=== PATIENT | female | born 1980 | race Caucasian/White ===

== ENCOUNTER 2025-05-27 07:05 | Observation (INO) ==
[2025-05-27] MEDS: MORPHINE SULFATE INJ 4 MG IVP ONE (07:41)
[2025-05-27] MEDS: ZOFRAN INJ 4 MG VIAL IVP ONE (07:41)
[2025-05-27 07:55] LABS: MEAN PLATELET VOLUME 7.5 fL (7.4-11.0); RED CELL DISTRIBUTION WIDTH 19.2 % (11.6-16.5)
[2025-05-27 08:03] LABS: COR NA(FOR HYPERGLY) 141 mmol/L (136-145); CREATININE 0.73 mg/dL (0.55-1.02); eGFR NON BLACK RACES > 60 (>60)
--- NOTE | 2025-05-27 08:55 | CT ---
EXAM: CT abdomen pelvis without contrast HISTORY: Severe abdominal pain TECHNIQUE: Axial noncontrast images with coronal and sagittal reformats. Dose reduction procedures were used with mA/kv adjusted for body size. This examination is limited due to the lack of intravenous and oral contrast. The examination was performed unenhanced at the SOLE direction of the ordering caregiver. Radiology was afforded no input into the method of performance of this examination. COMPARISON: 01/01/2025 FINDINGS: r within normal limits. Patient is status post cholecystectomy. Postsurgical changes are present in the area of the distal esophagus/gastroesophageal junction/proximal stomach. Historical correlation recommended. Kidneys are unobstructed and without stones. No ureteral calculi identified. Appendix not identified with absolute certainty. No secondary signs of appendicitis present. Abdominal aorta is of normal caliber. No enlarged intraperitoneal or retroperitoneal lymphadenopathy identified. Examination of the small bowel is limited by a paucity of intraperitoneal and retroperitoneal fat. However, there are multiple dilated fluid-filled jejunal and proximal ileal loops in the left abdomen. There is transition to more collapsed normal caliber mid and distal and terminal ileal loops in the lower midabdomen. Findings are suspicious for a partial small bowel obstruction. The etiology is not obvious. Surgical evaluation is recommended. There are no findings suggestive of colitis or diverticulitis. There is a large amount of stool throughout the colon suggestive of possible constipation. Examination of the pelvis demonstrated no evidence for pelvic masses, pelvic fluid, or pelvic lymphadenopathy. No definite bladder abnormality identified however evaluation of the bladder was limited due to the fact that it was nearly empty. There is an IUD present within the uterus. No lytic or blastic skeletal lesions of significance are identified. IMPRESSION: Examination is limited due to the lack of intravenous and oral contrast and a paucity of intra-and retroperitoneal fat in this patient. Interval development since the prior examination of multiple dilated loops of jejunum and proximal ileum in the left abdomen. There is a transition to more normal sized small bowel in the lower midabdomen suggestive of a partial small bowel obstruction the etiology of which is not obvious. Surgical evaluation is recommended. THIS IS AN ELECTRONICALLY VERIFIED FINAL REPORT 05/27/2025 8:52 AM - Electronically signed by Andrae Marquez MD
--- NOTE | 2025-05-27 09:04 | ED.ABDFE ---
HPI Time Seen Time Seen by Provider: 05/27/25 08:04 PCP Primary Care Physician: Gely HPI Comment HPI Comment: Patient with complaint of periumbilical abdominal pain since 2:30 in the morning. Patient states it is intermittent. She is unable to get relief despite multiple attempts at self treatment. Patient states she has been nauseated prior to arrival and tried to have orange juice and regurgitated it. At this time she is not nauseated after getting Zofran and the pain is controlled with morphine. She did have Phenergan earlier as well. Patient states she had a bowel movement yesterday. She does tend to run constipated. 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 Patient states she also had a bowel obstruction last year. Complaint Chief Complaint:: Patient complains of severe abdominal pain around "silver- umbilical" area since 0230 hrs. She states it is intermittent with occasional 4- 5 minutes of it easing off. She took warm showers, Phenergan 50 mg IM, Linzess without pain relief. She states she was intitially not nauseated, but developed nausea [employer]ER. 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 Other Family History History of Family Medical Conditions: Yes Family Medical History: Diabetes Mellitus and Hypertension Social History Does patient currently use any type of tobacco product: No Have you used tobacco products in the last 12 months: No Type of Tobacco Use: None Does any household member use tobacco: No Alcohol Use: Occasionally Do you use any recreational Drugs:: No Lives With: Spouse Lives Where: Home Travel Risk Coronavirus risk:travel/contact w/high risk person: No Has patient experienced Coronavirus symptoms: No Infectious screening In the last 2 months have you had wt loss of >10#?: NO Have you had fever, night sweats or hemotysis?: No Have you traveled outside the country in the last 6 months?: No Isolation: Standard ROS Review of Systems Constitutional: No Symptoms Reported Eyes: No Symptoms Reported ENTM: No Symptoms Reported Respiratoy: No Symptoms Reported Cardiovascular: No Symptoms Reported Gastrointestinal/Abdominal: See HPI Genitourinary: No Symptoms Reported Neurological: No Symptoms Reported Musculoskeletal: No Symptoms Reported Integumentary: No Symptoms Reported Hematologic/Lymphatic: No Symptoms Reported Endocrine: No Symptoms Reported Psychiatric: No Symptoms Reported All Other Systems: Reviewed and Negative PE Vital Signs Vitals: Vital Signs Temperature 98.6 F Pulse Rate 64 Respiratory Rate 18 Respiratory Rate 18 Blood Pressure 129/71 O2 Sat by Pulse Oximetry 100 General Limitations: No Limitations and Language Barrier General Appearance: Alert and In No Apparent Distress Head Head Exam: Normal Inspection Eyes Eye exam: Normal Appearance ENT ENT Exam: Normal Exam Neck Neck Exam: Normal Inspection Chest Chest Inspection: Normal Inspection Respiratory Respiratory Exam: Normal Lung Sounds Bilat Cardiovascular Cardiovascular Exam: Regular Rate and Normal Rhythm Abdominal Exam Abdominal Exam: Soft, Distention, Tenderness and Dimnished Bowel Sounds; negative Guarding, Rebound or Rigidity Rectal Rectal Exam: Deferred Back Back Exam: Normal Inspection Extremeties Extremities Exam: Normal Inspection Neurologic Neurological Exam: Alert and Oriented X3 Psychiatric Psychiatric Exam: Normal Affect and Normal Mood Skin Skin Exam: Warm, Dry and Intact COURSE Treatment Treatment: Patient does have small bowel obstruction on CT. Discussed results of workup with patient and family and they are agreeable to admission. 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 We discussed NG tube with patient and family but patient opted to wait and see since she is not nauseated or vomiting at this time. Consultation Called: 09:36 Consultation Comments: Discussed case with Dr. Guerra and he is agreeable to admission. Discussed case with surgeon, Dr. Burnette and he states he will see patient in the next couple of hours. ROR Labs Reviewed 05/27/25 07:44 05/27/25 07:44 Laboratory: WBC 5.5 X10^3/uL (3.6-10.0) 05/27/25 07:44 RBC 5.50 X10^6/uL (3.5-5.4) H 05/27/25 07:44 Hgb 13.4 g/dL (12.0-16.0) 05/27/25 07:44 Hct 41.8 % (36.0-47.0) 05/27/25 07:44 MCV 76.0 fL (80.0-100.0) L 05/27/25 07:44 MCH 24.4 pg (27.0-34.0) L 05/27/25 07:44 MCHC 32.1 g/dL (33.0-35.0) L 05/27/25 07:44 RDW 19.2 % (11.6-16.5) H 05/27/25 07:44 Plt Count 248 X10^3/uL (150.0-450.0) 05/27/25 07:44 MPV 7.5 fL (7.4-11.0) 05/27/25 07:44 Neut % (Auto) 85.9 % (42.0-75.0) H 05/27/25 07:44 Lymph % (Auto) 9.9 % (21.0-51.0) L 05/27/25 07:44 [place] % (Auto) 3.5 % (0.0-13.0) 05/27/25 07:44 Eos % (Auto) 0.3 % (0.9-2.9) L 05/27/25 07:44 Baso % (Auto) 0.4 % (0.2-1.0) 05/27/25 07:44 Neut # (Auto) 4.7 x10^3/uL (2.2-4.8) 05/27/25 07:44 Lymph # (Auto) 0.5 X10^3/uL (1.3-2.9) L 05/27/25 07:44 [place] # (Auto) 0.2 x10^3/uL (0.3-0.8) L 05/27/25 07:44 Eos # (Auto) 0.0 x10^3/uL (0.0-0.2) 05/27/25 07:44 Baso # (Auto) 0.0 X10^3/uL (0.0-0.1) 05/27/25 07:44 Absolute Nucleated RBC 0.0 /100WBC 05/27/25 07:44 Sodium 140 mmol/L (136-145) 05/27/25 07:44 Corrected Sodium 141 mmol/L (136-145) 05/27/25 07:44 Potassium 4.0 mmol/L (3.5-5.1) 05/27/25 07:44 Chloride 103 mmol/L (98-107) 05/27/25 07:44 Carbon Dioxide 25.8 mmol/L (21-32) 05/27/25 07:44 BUN 15 mg/dL (7-18) 05/27/25 07:44 Creatinine 0.73 mg/dL (0.55-1.02) 05/27/25 07:44 Est GFR (MDRD) Af Amer > 60 (>60) 05/27/25 07:44 Est GFR (MDRD) Non-Af > 60 (>60) 05/27/25 07:44 Glucose 128 mg/dL (65-99) H 05/27/25 07:44 Calcium 9.2 mg/dL (8.5-10.1) 05/27/25 07:44 Corrected Calcium TNP 05/27/25 07:44 Total Bilirubin 0.90 mg/dL (0.2-1.0) 05/27/25 07:44 AST 39 Units/L (15-37) H 05/27/25 07:44 ALT 57 Units/L (12-78) 05/27/25 07:44 Alkaline Phosphatase 57 Units/L (46-116) 05/27/25 07:44 Total Protein 9.0 g/dL (6.4-8.2) H 05/27/25 07:44 Albumin 4.9 g/dL (3.4-5.0) 05/27/25 07:44 Globulin 4.1 g/dL (2.5-4.5) 05/27/25 07:44 Albumin/Globulin Ratio 1.2 Ratio (1.1-2.1) 05/27/25 07:44 Amylase 55 Units/L (25-115) 05/27/25 07:44 Lipase 46 Units/L (16-77) 05/27/25 07:44 Opioid Opioid Risk Tool Age (Tommie box if 16-45): Yes History of Preadolescent Sexual Abuse: No Total: 1 Total Score Risk Category: Low Risk Copyright: Jaime MAGANA predicting aberrant behaviors Discharge Plan Diagnosis Discharge Problem: Small bowel obstruction Discharge Plan Patient Disposition: 09 ADMITTED INPATIENT Condition: Stable Prescriptions: No Action Wegovy 1.7 mg/0.75 mL pen injector 1.7 mg SUBCUT QWEEK Health Concerns: Post Hospitalization: new medications and changes needed to prevent readmission or further decline. Pt educated and given instructions on all concerns. Plan of Treatment: Continue with present treatment and follow up plan. Pt is to keep follow up appointment as instructed and take medications as ordered. Orders to Discharge Patient Discharge Orders: Transfer (Routine); Ordered 05/27/25 Ordered By: Parveen Gardiner Follow ups/Referrals Follow ups/Referrals: Fran Hong MD [Primary Care Provider, Family Practice] - 3 days Instructions Stand Alone Forms: Find Help Web Site, Post Hospital Follow Up Care Print Language: SPANISH
[2025-05-27] MEDS: MORPHINE SULFATE INJ 2 MG INJ IVP ONE (10:21)
--- NOTE | 2025-05-27 11:02 | DR.H&P ---
H&P History & Physical for Day of: H&P Date: 05/27/25 Chief Complaint Chief Complaint: abdominal pain nausea History of Present Illness History of Present Illness: Patient is a 45-year-old female with no medical history other than surgical history of Jesus-en-Y and currently on Wegovy for weight loss. This morning she reports feeling abdominal pain that was sharp and nausea. She does report vomiting. Labs/imaging: WBC 5.5, hemoglobin 13.4, platelets 248, sodium 140, potassium 4, creatinine 0.73, glucose 128, amylase and lipase within normal limits, ALT 57, AST 39, alk phos 57. CT abdomen pelvis was obtained that revealed partial small bowel obstruction. Patient was admitted for small bowel obstruction. Will keep patient n.p.o. at this time. Will start on IV fluids. Order anti-emetics and morphine prn. Will also consult general surgery for further evaluation and treatment. Otherwise continue current treatment plan. Continue closely monitor and follow-up labs/imaging. 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 Other Family History Family Medical History: Diabetes Mellitus and Hypertension Social History Does patient currently use any type of tobacco product: No Have you used tobacco products in the last 12 months: No Type of Tobacco Use: None Does any household member use tobacco: No Alcohol Use: Occasionally Medications Home Medications: Home Medications Medication Instructions Recorded Confirmed Type semaglutide (weight loss) 1.7 1.7 mg subcut QWEEK 12/1305/27/25 History mg/0.75 mL subcutaneous pen injector (Wegovy) Allergies Allergies Allergy/AdvReac Type Severity Reaction Status Date / Time NSAIDS (Non-Steroidal AdvReac Intermediate Unverified 10/02/23 13:44 Anti-Inflamma Labs 05/27/25 07:44 05/27/25 07:44 Labs: Laboratory WBC 5.5 X10^3/uL (3.6-10.0) 05/27/25 07:44 RBC 5.50 X10^6/uL (3.5-5.4) H 05/27/25 07:44 Hgb 13.4 g/dL (12.0-16.0) 05/27/25 07:44 Hct 41.8 % (36.0-47.0) 05/27/25 07:44 MCV 76.0 fL (80.0-100.0) L 05/27/25 07:44 MCH 24.4 pg (27.0-34.0) L 05/27/25 07:44 MCHC 32.1 g/dL (33.0-35.0) L 05/27/25 07:44 RDW 19.2 % (11.6-16.5) H 05/27/25 07:44 Plt Count 248 X10^3/uL (150.0-450.0) 05/27/25 07:44 MPV 7.5 fL (7.4-11.0) 05/27/25 07:44 Neut % (Auto) 85.9 % (42.0-75.0) H 05/27/25 07:44 Lymph % (Auto) 9.9 % (21.0-51.0) L 05/27/25 07:44 [place] % (Auto) 3.5 % (0.0-13.0) 05/27/25 07:44 Eos % (Auto) 0.3 % (0.9-2.9) L 05/27/25 07:44 Baso % (Auto) 0.4 % (0.2-1.0) 05/27/25 07:44 Neut # (Auto) 4.7 x10^3/uL (2.2-4.8) 05/27/25 07:44 Lymph # (Auto) 0.5 X10^3/uL (1.3-2.9) L 05/27/25 07:44 [place] # (Auto) 0.2 x10^3/uL (0.3-0.8) L 05/27/25 07:44 Eos # (Auto) 0.0 x10^3/uL (0.0-0.2) 05/27/25 07:44 Baso # (Auto) 0.0 X10^3/uL (0.0-0.1) 05/27/25 07:44 Absolute Nucleated RBC 0.0 /100WBC 05/27/25 07:44 Sodium 140 mmol/L (136-145) 05/27/25 07:44 Corrected Sodium 141 mmol/L (136-145) 05/27/25 07:44 Potassium 4.0 mmol/L (3.5-5.1) 05/27/25 07:44 Chloride 103 mmol/L (98-107) 05/27/25 07:44 Carbon Dioxide 25.8 mmol/L (21-32) 05/27/25 07:44 BUN 15 mg/dL (7-18) 05/27/25 07:44 Creatinine 0.73 mg/dL (0.55-1.02) 05/27/25 07:44 Est GFR (MDRD) Af Amer > 60 (>60) 05/27/25 07:44 Est GFR (MDRD) Non-Af > 60 (>60) 05/27/25 07:44 Glucose 128 mg/dL (65-99) H 05/27/25 07:44 Calcium 9.2 mg/dL (8.5-10.1) 05/27/25 07:44 Corrected Calcium TNP 05/27/25 07:44 Total Bilirubin 0.90 mg/dL (0.2-1.0) 05/27/25 07:44 AST 39 Units/L (15-37) H 05/27/25 07:44 ALT 57 Units/L (12-78) 05/27/25 07:44 Alkaline Phosphatase 57 Units/L (46-116) 05/27/25 07:44 Total Protein 9.0 g/dL (6.4-8.2) H 05/27/25 07:44 Albumin 4.9 g/dL (3.4-5.0) 05/27/25 07:44 Globulin 4.1 g/dL (2.5-4.5) 05/27/25 07:44 Albumin/Globulin Ratio 1.2 Ratio (1.1-2.1) 05/27/25 07:44 Amylase 55 Units/L (25-115) 05/27/25 07:44 Lipase 46 Units/L (16-77) 05/27/25 07:44 Review of Systems Constitutional: No Symptoms Reported Eyes: No Symptoms Reported ENT: No Symptoms Reported Respiratory: No Symptoms Reported Cardiovascular: No Symptoms Reported Gastrointestinal: Nausea and Abdominal Pain Genitourinary: No Symptoms Reported Musculoskeletal: No Symptoms Reported Skin: No Symptoms Reported Neurological: No Symptoms Reported Physical Exam Vital Signs: Vital Signs Temperature 98.6 F Pulse Rate [Left Radial] 84 Pulse Rate [Left Radial] 83 Pulse Rate [Left Radial] 63 Pulse Rate [Left Radial] 56 Pulse Rate [Left Radial] 72 Pulse Rate 64 Respiratory Rate 14 Respiratory Rate 18 Respiratory Rate 18 Blood Pressure [Left Arm] 108/70 Blood Pressure [Left Arm] 104/71 Blood Pressure [Left Arm] 98/63 Blood Pressure [Left Arm] 99/66 Blood Pressure [Left Arm] 109/72 Blood Pressure 129/71 O2 Sat by Pulse Oximetry 100 O2 Sat by Pulse Oximetry 100 O2 Sat by Pulse Oximetry 100 O2 Sat by Pulse Oximetry 100 O2 Sat by Pulse Oximetry 100 O2 Sat by Pulse Oximetry 100 Oriented: Normal Eyes: Normal Ear: Normal Nose: Normal Throat: Normal Respiratory: Clear Throughout Cardiovascular: Normal : Normal Auscultation: Bowel Sounds: Normal Palpation: Normal Tenderness: Epigastric and Mild Skin: Normal Musculoskeletal: Normal Psychiatric: Normal Mood Description: Calm and Appropriate Affect: Normal Speech Pattern: Clear and Appropriate Assessment/Plan (1) Small bowel obstruction: Status: Acute Plan: NPO, IVF, consult general surgery-Dr Carbone IV morphine prn, anti-emetics prn (2) Abdominal pain: Qualifiers: Abdominal location: epigastric Qualified Code(s): R10.13 - Epigastric pain Status: Acute Review H&P Reviewed: Yes Patient was examined?: Yes
[2025-05-27] MEDS ORDERED: OFIRMEV IV 1000 MG VIAL 500 MG/50 ML VIAL IV PRN (11:04)
[2025-05-27] MEDS ORDERED: MORPHINE SULFATE INJ 2 MG INJ IVP PRN (11:04)
[2025-05-27] MEDS: MORPHINE SULFATE INJ 4 MG ONE (11:10)
[2025-05-27] MEDS: ZOFRAN INJ 4 MG VIAL ONE (11:11)
[2025-05-27] MEDS: MORPHINE SULFATE INJ 2 MG INJ ONE (11:11)
[2025-05-27 11:40] LABS: BLOOD/HEMOGLOBIN,URINE NEGATIVE (NEGATIVE); LEUKOCYTE ESTERASE ,URINE NEGATIVE (NEGATIVE); NITRITES,URINE NEGATIVE (NEGATIVE)
[2025-05-27 11:47] LABS: APPEARANCE,URINE CLEAR (CLEAR); SQUAMOUS EPITHELIAL CELL,UR RARE /HPF (NEGATIVE)
[2025-05-27 12:04] VITALS: BMI 25.9
[2025-05-27] MEDS: NS 1,000 ML IV 1,000 ML IV SCH (17:17)
[2025-05-27] MEDS: TYLENOL 325 MG TAB PO PRN (18:31)
[2025-05-27] MEDS: ZOFRAN INJ 4 MG VIAL IVP PRN (18:32)
[2025-05-27] MEDS: CONSULT PHARMACY - POTASSIUM & MAGNESIUM XX SCH (20:39)
[2025-05-28 00:58] VITALS: O2SAT 98
[2025-05-28 06:35] LABS: COR CA(FOR HYPOALB) 8.3 mg/dL (8.5-10.1); CREATININE 0.53 mg/dL (0.55-1.02); eGFR NON BLACK RACES > 60 (>60)
[2025-05-28 06:39] LABS: MEAN PLATELET VOLUME 7.7 fL (7.4-11.0)
[2025-05-28 06:52] LABS: RED CELL DISTRIBUTION WIDTH 19.0 % (11.6-16.5)
[2025-05-28] MEDS ORDERED: CONSULT PHARMACY - POTASSIUM & MAGNESIUM XX SCH (08:00)
--- NOTE | 2025-05-28 08:04 | RAD ---
EXAMINATION: KUB HISTORY: PARTIAL BOWEL OBSTRUCTION ; NO MEDICAL HISTORY SX: IUD, APPY, EDUARDO . COMPARISON STUDY: None. TECHNIQUE: 2 supine AP views of the abdomen and pelvis FINDINGS: Mild amount of bowel-gas and feces. Visualized soft tissue outlines and osseous structures appear intact. Metallic clips right upper abdomen. Nonspecific foreign bodies projecting right lower lateral abdomen in the left lower lateral abdomen. IMPRESSION: Mild amount of bowel-gas and feces. THIS IS AN ELECTRONICALLY VERIFIED FINAL REPORT 05/28/2025 8:01 AM - Electronically signed by Mia Moore MD
[2025-05-28] MEDS: MAGNESIUM SULFATE 1 GRAM/100 mL PREMIX 1 G/100 ML BAG IV SCH (09:46)
[2025-05-28] MEDS: K-RIDER 10 MEQ/100 ML WATER 10 MEQ/100 ML BAG IV SCH (10:59)
[2025-05-28 11:59] VITALS: BP 132/79; PULSE 86; RESP 18; TEMP 97.6
[2025-05-28] MEDS: KLOR-CON 10 MEQ TAB PO NR (12:25)
[2025-05-28] MEDS: MAG-OX TAB PO NR (12:25)
--- NOTE | 2025-05-28 13:28 | DR.PROGNOT ---
HOSPITAL PROGRESS NOTE Progress Note for Day of: Progress Note Date: 05/28/25 Chief Complaint Chief Complaint: Abdominal pain has mostly subsided, no nausea or vomiting, no bowel movement but patient is passing flatus. KUB this morning showed no evidence of bowel obstruction White count, renal and liver functions are normal. Abdomen is soft and flat with good bowel sounds. The rest of systemic review is the same as before.. Past Medical Family Social History Allergies: Allergies NSAIDS (Non-Steroidal Anti-Inflamma Adverse Reaction (Intermediate, Unverified 10/02/23 13:44) Vital Signs Vital Signs: Vital Signs Temperature 97.6 F Temperature 98.5 F Pulse Rate [Left Radial] 86 Pulse Rate [Left Radial] 80 Respiratory Rate 18 Respiratory Rate 20 Blood Pressure [Left Arm] 132/79 Blood Pressure [Left Arm] 123/73 O2 Sat by Pulse Oximetry 98 O2 Sat by Pulse Oximetry 98 Physical Exam Oriented: Normal Eyes: Normal Ear: Normal Nose: Normal Throat: Normal Cardiovascular: Normal : Normal GI:Auscultation: Normal GI:Palpation: Normal GI: Tenderness: Epigastric and Mild Skin: Normal Musculoskeletal: Normal Psychiatric: Normal Mood Description: Calm and Appropriate Affect: Normal Speech Pattern: Clear Laboratory and Diagnostics 05/28/25 05:46 05/28/25 05:46 Labs: Laboratory WBC 4.2 X10^3/uL (3.6-10.0) 05/28/25 05:46 RBC 4.47 X10^6/uL (3.5-5.4) 05/28/25 05:46 Hgb 11.0 g/dL (12.0-16.0) L D 05/28/25 05:46 Hct 34.1 % (36.0-47.0) L 05/28/25 05:46 MCV 76.2 fL (80.0-100.0) L 05/28/25 05:46 MCH 24.5 pg (27.0-34.0) L 05/28/25 05:46 MCHC 32.2 g/dL (33.0-35.0) L 05/28/25 05:46 RDW 19.0 % (11.6-16.5) H 05/28/25 05:46 Plt Count 219 X10^3/uL (150.0-450.0) 05/28/25 05:46 MPV 7.7 fL (7.4-11.0) 05/28/25 05:46 Neut % (Auto) 56.5 % (42.0-75.0) 05/28/25 05:46 Lymph % (Auto) 31.3 % (21.0-51.0) 05/28/25 05:46 [place] % (Auto) 7.7 % (0.0-13.0) 05/28/25 05:46 Eos % (Auto) 3.6 % (0.9-2.9) H 05/28/25 05:46 Baso % (Auto) 0.9 % (0.2-1.0) 05/28/25 05:46 Neut # (Auto) 2.4 x10^3/uL (2.2-4.8) 05/28/25 05:46 Lymph # (Auto) 1.3 X10^3/uL (1.3-2.9) 05/28/25 05:46 Sac # (Auto) 0.3 x10^3/uL (0.3-0.8) 05/28/25 05:46 Eos # (Auto) 0.2 x10^3/uL (0.0-0.2) 05/28/25 05:46 Baso # (Auto) 0.0 X10^3/uL (0.0-0.1) 05/28/25 05:46 Absolute Nucleated RBC 0.3 /100WBC 05/28/25 05:46 Sodium 143 mmol/L (136-145) 05/28/25 05:46 Corrected Sodium TNP 05/28/25 05:46 Potassium 3.5 mmol/L (3.5-5.1) 05/28/25 05:46 Chloride 107 mmol/L (98-107) 05/28/25 05:46 Carbon Dioxide 26.1 mmol/L (21-32) 05/28/25 05:46 BUN 8 mg/dL (7-18) 05/28/25 05:46 Creatinine 0.53 mg/dL (0.55-1.02) L 05/28/25 05:46 Est GFR (MDRD) Af Amer > 60 (>60) 05/28/25 05:46 Est GFR (MDRD) Non-Af > 60 (>60) 05/28/25 05:46 Glucose 78 mg/dL (65-99) 05/28/25 05:46 Calcium 7.7 mg/dL (8.5-10.1) L 05/28/25 05:46 Corrected Calcium 8.3 mg/dL (8.5-10.1) L 05/28/25 05:46 Magnesium 1.6 mg/dL (2.0-2.9) L 05/28/25 05:46 Total Bilirubin 1.00 mg/dL (0.2-1.0) 05/28/25 05:46 AST 159 Units/L (15-37) H 05/28/25 05:46 ALT 222 Units/L (12-78) H 05/28/25 05:46 Alkaline Phosphatase 105 Units/L (46-116) 05/28/25 05:46 Total Protein 6.1 g/dL (6.4-8.2) L 05/28/25 05:46 Albumin 3.2 g/dL (3.4-5.0) L 05/28/25 05:46 Globulin 2.9 g/dL (2.5-4.5) 05/28/25 05:46 Albumin/Globulin Ratio 1.1 Ratio (1.1-2.1) 05/28/25 05:46 Amylase 50 Units/L (25-115) 05/28/25 05:46 Lipase 42 Units/L (16-77) 05/28/25 05:46 Specimen Type Clean catch urine 05/27/25 11:28 Urine Color Yellow (YELLOW) 05/27/25 11:28 Urine Appearance Clear (CLEAR) 05/27/25 11:28 Urine pH 6.0 (5.0 - 8.0) 05/27/25 11:28 Ur Specific [place] 1.030 (1.000-1.030) 05/27/25 11:28 Urine Protein 1+ (NEGATIVE) 05/27/25 11:28 Urine Glucose (UA) Negative (NEGATIVE) 05/27/25 11:28 Urine Ketones 4+ (NEGATIVE) 05/27/25 11:28 Urine Blood Negative (NEGATIVE) 05/27/25 11:28 Urine Nitrite Negative (NEGATIVE) 05/27/25 11:28 Urine Bilirubin Negative (NEGATIVE) 05/27/25 11:28 Urine Urobilinogen Normal (NORMAL) 05/27/25 11:28 Ur Leukocyte Esterase Negative (NEGATIVE) 05/27/25 11:28 Urine RBC None seen /HPF (0-3) 05/27/25 11:28 Urine WBC None seen /HPF (0-5) 05/27/25 11:28 Ur Squamous Epith Cells Rare /HPF (NEGATIVE) 05/27/25 11:28 Urine Bacteria Negative /HPF (NEGATIVE) 05/27/25 11:28 Urine Mucus Rare /HPF (NEGATIVE) 05/27/25 11:28 Ur Culture Indicated? No/not indicated 05/27/25 11:28 Assessment and Plan 1: Subsiding partial small bowel obstruction secondary to abdominal adhesions. To advance diet and discharge later on today. Will follow in the office as needed. Problem Patient Problems: Patient Problems Small bowel obstruction (Acute) K56.863
== END 2025-05-28 12:30 | disposition home or self-care (01) ==
LOC: U 07:05 → MED/SURG 07:05 → ER 07:05 → MED/SURG 11:11
PROVIDERS: ADMIT Family Medicine; ATTEND Family Medicine
DX: R10.13 Epigastric pain; R73.09 Other abnormal glucose; K66.0 Peritoneal adhesions (postprocedural) (postinfection); R74.01 Elevation of levels of liver transaminase levels; R10.84 Generalized abdominal pain; R51.9 Headache, unspecified; E83.51 Hypocalcemia; K56.690 Other partial intestinal obstruction; K59.09 Other constipation; Z98.84 Bariatric surgery status; E83.42 Hypomagnesemia